=== PATIENT | female | born 1980 | race Caucasian/White ===

== ENCOUNTER 2017-08-23 18:15 | Emergency (ER) | payer OTHER ==
[2017-08-23 18:23] VITALS: BP 122/76
--- NOTE | 2017-08-23 19:36 | ER Document Report ---
ED Medical Screen (RME) - General Chief Complaint: Vaginal Bleeding Stated Complaint: VAGINAL BLEEDING Time Seen by Provider: 08/23/17 19:32 Notes: RAPID MEDICAL EVALUATION DISCLOSURE I have seen this patient as part of a Rapid Medical Evaluation and, if applicable, placed any initially appropriate orders. The patient will be seen and fully evaluated, including a full history and physical exam, by a provider ( in Main ED or Fast Track) when a room becomes available. 36-year-old female here with complaints of vaginal bleeding and left lower quadrant/pelvic pain that has been ongoing for the past few days. The bleeding initially started out as spotting however has progressively worsened and become heavier. She is now expelling clots but no tissue. She has not taken anything for the symptoms. She has taken several at home tests which were all negative. Some nausea but no vomiting diarrhea fevers chills dysuria hematuria frequency hesitancy. EXAM Clear to auscultation bilaterally Regular rate and rhythm Minimal to mild suprapubic and left lower quadrant tenderness No peritoneal signs TRAVEL OUTSIDE OF THE [place] IN LAST 30 DAYS: No - Related Data Allergies/Adverse Reactions: No Known Allergies Allergy (Unverified 08/23/17 18:20) Past Medical History - Social History Chew tobacco use (# tins/day): No Frequency of alcohol use: None Renal/ Medical History: Denies: Hx Peritoneal Dialysis Physical Exam - Vital signs Vitals: Temp Pulse Resp BP Pulse Ox 98.0 F 60 16 122/76 98 08/23/17 18:21 08/23/17 18:21 08/23/17 18:21 08/23/17 18:21 08/23/17 18:21 Course - Vital Signs Vital signs: Temp Pulse Resp BP Pulse Ox 98.0 F 60 16 122/76 98 08/23/17 18:21 08/23/17 18:21 08/23/17 18:21 08/23/17 18:21 08/23/17 18:21
--- NOTE | 2017-08-23 19:57 | ER Document Report ---
ED General - General Chief Complaint: Vaginal Bleeding Stated Complaint: VAGINAL BLEEDING Time Seen by Provider: 08/23/17 19:32 TRAVEL OUTSIDE OF THE [place] IN LAST 30 DAYS: No - HPI Notes: Patient is a 36-year-old female who presents to the ED complaining of vaginal bleeding with cramping and left lower pelvic intermittent pains 3 days. Patient states that her menstrual cycle was supposed to start on the first of the month and she is always regular. Patient is concerned that she may be having a miscarriage despite multiple negative tests at home. Patient states that she had an elective years ago, but has not been since then. She denies any drug allergies or other significant past medical history. She is eating and drinking without difficulties. She is urinating normally and having normal bowel movements. Bleeding started out light initially and has been heavier over the last 24 hours. She has used 5 tampons today. Denies any IV drug use. Denies any headache, fever, neck pain, URI, sore throat, chest pain, palpitations, syncope, cough, shortness of breath , wheeze, dyspnea, nausea/vomiting/diarrhea, urinary retention, dysuria, hematuria, back pain, loss of control of bowel or bladder, numbness/tingling, saddle anesthesia, muscle paralysis/weakness, or rash. No surgical history to abdomen aside from elective . - Related Data Allergies/Adverse Reactions: No Known Allergies Allergy (Unverified 08/23/17 18:20) Past Medical History - Social History Smoking Status: Never Smoker Chew tobacco use (# tins/day): No Frequency of alcohol use: None Family History: Reviewed & Not Pertinent Patient has suicidal ideation: No Patient has homicidal ideation: No Renal/ Medical History: Denies: Hx Peritoneal Dialysis Review of Systems - Review of Systems -: Yes All other systems reviewed and negative Physical Exam - Vital signs Vitals: Temp Pulse Resp BP Pulse Ox 98.0 F 60 16 122/76 98 08/23/17 18:21 08/23/17 18:21 08/23/17 18:21 08/23/17 18:21 08/23/17 18:21 - Notes Notes: PHYSICAL EXAMINATION: GENERAL: Well-appearing, well-nourished and in no acute distress. LUNGS: Breath sounds clear to auscultation bilaterally and equal. No wheezes rales or rhonchi. HEART: Regular rate and rhythm without murmurs, rubs, gallops. ABDOMEN: Soft, nondistended abdomen. No guarding, no rebound. No masses appreciated. Normal bowel sounds present. No CVA tenderness bilaterally. + mild tenderness left lower pelvic area. No tenderness at McBurney. noel neg. Extremities: No cyanosis, clubbing, or edema b/l. Peripheral pulses 2+. Capillary refill less than 3 seconds. NEUROLOGICAL: Normal speech, normal gait. Normal sensory, motor exams PSYCH: Normal mood, normal affect. SKIN: Warm, Dry, normal turgor, no rashes or lesions noted. Course - Re-evaluation Re-evalutation: 08/23/17 21:40 re-eval of patient's abd: pt currently asymptomatic. Abd soft and nontender. 08/23/17 21:44 Patient is an afebrile, well-hydrated, 28-year-old female who presents to the ED with pelvic pain unspecified and vaginal bleeding which may be associated with her menstrual cycle. Vitals are acceptable. PE is otherwise unremarkable. Patient is currently asymptomatic aside from light bleeding. She is tolerating p.o. without difficulties. She has no significant tachycardia , tachypnea, or hypoxia. Urinalysis and hCG were unremarkable for any acute pathology. Transvaginal ultrasound could not visualize the ovaries. Reviewed with patient that I cannot officially rule out an ovarian torsion and she needs to monitor symptoms closely and have strict follow-up. Advised patient that she should call and have a recheck with [employer] in the next 1-2 days. Recheck with your PCM in that time if unable to follow-up with [employer]. Return to the ED with any worsening/concerning symptoms otherwise as reviewed discharge. Patient is in agreement. - Vital Signs Vital signs: Temp Pulse Resp BP Pulse Ox 98.0 F 60 16 122/76 98 08/23/17 18:21 08/23/17 18:21 08/23/17 18:21 08/23/17 18:21 08/23/17 18:21 - Laboratory Laboratory results interpreted by me: 08/23/17 20:20 Urine Ketones TRACE H Urine Blood LARGE H Discharge - Discharge Clinical Impression: Pelvic pain Condition: Stable Disposition: HOME, SELF-CARE Instructions: Pelvic Pain ([facility]) Additional Instructions: Maintain fluid intake Proper hygenic technique Keep the skin clean Tylenol/ibuprofen as needed Monitor symptoms very closely for any acute changes F/u with your PCM or [facility] [facility] in 1-2 days for a recheck Return to the ED with any worsening symptoms and/or development of fever, headache, chest pain, palpitations, syncope, shortness of breath, trouble breathing, abdominal pain, n/v/d, blood in stool/urine, loss of control of bowel /bladder, urinary retention, or other worsening symptoms that are concerning to you. Referrals: [facility] [Provider Group] - Follow up tomorrow
[2017-08-23 20:35] LABS: APPEARANCE,URINE SLIGHTLY-CLOUDY; BILIRUBIN,URINE NEGATIVE (NEGATIVE); COLOR,URINE YELLOW; GLUCOSE, URINE NEGATIVE (NEGATIVE); KETONES,URINE TRACE mg/dL (NEGATIVE); LEUKOCYTE ESTERASE,URINE NEGATIVE (NEGATIVE); NITRITE,URINE NEGATIVE (NEGATIVE); PROTEIN,URINE NEGATIVE (NEGATIVE); UROBILINOGEN,URINE NEGATIVE mg/dL (<2.0)
--- NOTE | 2017-08-23 21:35 | RADIOLOGY REPORT (SQ) ---
EXAM DESCRIPTION: U/S NON OB PEL TV W/DOPPLER COMPLETED DATE/TIME: 08/23/2017 9:21 pm REASON FOR STUDY: left pelvic pain/cramping COMPARISON: None. TECHNIQUE: Dynamic and static grayscale images acquired of the pelvis via transvaginal approach and recorded on PACS. Additional selected color Doppler and spectral images recorded. LIMITATIONS: Overlying bowel gas. FINDINGS: UTERUS: Contour normal. No mass. ENDOMETRIAL STRIPE: No focal or generalized thickening. No masses. CERVIX: Multiple 5-6 mm nabothian cysts. RIGHT ADNEXUM: Ovary not visualized. LEFT ADNEXUM: Ovary not visualized. FREE FLUID: None noted. OTHER: No other significant finding. MEASUREMENTS: UTERUS: 7.4 x 4.1 x 4.5 cm ENDOMETRIAL STRIPE: 5 mm RIGHT OVARY: Not visualized. LEFT OVARY: Not visualized. IMPRESSION: Nonvisualized ovaries. No free fluid. TECHNICAL DOCUMENTATION: JOB ID: [id number] [place]-72 2010 [employer]- All Rights Reserved Reading location - IP/workstation name: [employer]
== END 2017-08-23 21:58 | disposition home or self-care (01) ==
LOC: ER 18:15
DX: R10.2 Pelvic and perineal pain (principal); N93.9 Abnormal uterine and vaginal bleeding, unspecified
CPT/HCPCS: 76830; 81001; 81025; 93976; 99284

== ENCOUNTER 2017-11-19 09:22 | Emergency (ER) | payer OTHER ==
[2017-11-19 11:03] LABS: APPEARANCE,URINE CLOUDY; BILIRUBIN,URINE NEGATIVE (NEGATIVE); GLUCOSE, URINE NEGATIVE (NEGATIVE); KETONES,URINE TRACE mg/dL (NEGATIVE); LEUKOCYTE ESTERASE,URINE NEGATIVE (NEGATIVE); NITRITE,URINE NEGATIVE (NEGATIVE); PROTEIN,URINE 30 mg/dL (NEGATIVE); URINE SPECIFIC GRAVITY 1.021; UROBILINOGEN,URINE NEGATIVE mg/dL (<2.0)
[2017-11-19 11:06] LABS: COLOR,URINE YELLOW
[2017-11-19 11:40] VITALS: BP 105/69
--- NOTE | 2017-11-19 14:10 | ER Document Report ---
ED General - General Chief Complaint: Vaginal Bleeding Stated Complaint: VAGINA BLEEDING Time Seen by Provider: 11/19/17 10:30 TRAVEL OUTSIDE OF THE [place] IN LAST 30 DAYS: No - HPI Patient complains to provider of: Vaginal bleeding Onset: Just prior to arrival Onset/Duration: Sudden Quality of pain: No pain Severity: None Associated symptoms: Other - Patient had a sudden onset of blood per vagina, she notes she is 13 weeks , denies any pain at this time has seen her OB doctor as recently as this week who did an ultrasound 4 days prior and had given her a clean bill of health as well as a normal IUP. Nothing is seem to make the bleeding any better it stopped on its own, this is the first time this is happened. She does not have any bleeding problems has never had any health problems that she knows of. - Related Data Allergies/Adverse Reactions: No Known Allergies Allergy (Verified 11/19/17 09:24) Past Medical History - General Information source: Patient Last Menstrual Period: 08/19/17 - Social History Smoking Status: Never Smoker Chew tobacco use (# tins/day): No Frequency of alcohol use: None Drug Abuse: None Family History: Reviewed & Not Pertinent Patient has suicidal ideation: No Patient has homicidal ideation: No Renal/ Medical History: Denies: Hx Peritoneal Dialysis Review of Systems - Review of Systems Genitourinary: Other - Blood from vagina Female Genitourinary: See HPI -: Yes All other systems reviewed and negative Physical Exam - Vital signs Vitals: Temp Pulse Resp BP Pulse Ox 99.2 F 90 16 117/76 98 11/19/17 09:27 11/19/17 09:27 11/19/17 09:27 11/19/17 09:27 11/19/17 09:27 - General General appearance: Appears well In distress: None - HEENT Head: Normocephalic Eyes: Normal - Respiratory Respiratory status: No respiratory distress Chest status: Nontender Breath sounds: Normal - Cardiovascular Rhythm: Regular Heart sounds: Normal auscultation Murmur: No - Abdominal Inspection: Normal Distension: No distension - Back Back: Normal - Extremities General upper extremity: Normal inspection General lower extremity: Normal inspection - Neurological Neuro grossly intact: Yes Cognition: Normal Orientation: AAOx4 - Psychological Associated symptoms: Normal affect Course - Re-evaluation Re-evalutation: 11/19/17 16:25 37-year-old female presents for evaluation of single episode of blood from vagina. She is 13 weeks has no other health perms at this time. Currently she has no complaints, is just concerned. Sedatives a reasonable amount of bright red blood no clots no other tissue noticed. Had no trauma to the abdomen preceding did not take any medications. Examination person does have a modestly gravid abdomen, bedside ultrasound demonstrates a well appearing fetus with a normal heart rate in the 150 range appropriate for gestational age. No obvious free fluid was identified in the pelvis. We will obtain urinalysis. Urines unremarkable, patient was previously to be treated for a yeast infection but would not be able to receive medications for the next week at least. Given that she does have yeast infection which is going undertreated currently we will give prescription for Monistat. 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 - Vital Signs Vital signs: Temp Pulse Resp BP Pulse Ox 98.0 F 69 16 105/69 98 11/19/17 11:38 11/19/17 11:38 11/19/17 11:38 11/19/17 11:38 11/19/17 11:38 - Laboratory Laboratory results interpreted by me: 11/19/17 10:25 Urine Protein 30 H Urine Ketones TRACE H Urine Blood LARGE H Discharge - Discharge Clinical Impression: Threatened Condition: Stable Disposition: HOME, SELF-CARE Additional Instructions: You were seen today in the emergency department for a threatened miscarriage, urine evaluation including physical exam and ultrasound. You should use the prescribed medication for a yeast infection. Return for any worsening cramping abdominal pain or passage of clots. Schedule appointment with your OB doctor in the coming days. Prescriptions: Miconazole/Cleanser 17 On Wipe [Miconazole 3 Combo Pack] 1 each VG DAILY #1 kit
== END 2017-11-19 11:40 | disposition home or self-care (01) ==
LOC: ER 09:22
DX: O20.0 Threatened abortion (principal); Z3A.13 13 weeks gestation of pregnancy
CPT/HCPCS: 81001; 99284

== ENCOUNTER → 2018-04-11 | Outpatient (CLI) | payer OTHER | LOC: LC 11:19 | PROVIDERS: ATTEND Obstetrics & Gynecology | PROC: 4A1HXCZ Monitoring of Products of Conception, Cardiac Rate, External Approach (ICD-10-PCS; principal; 2018-04-11) | DX: O09.523 Supervision of elderly multigravida, third trimester (principal); Z3A.33 33 weeks gestation of pregnancy | CPT/HCPCS: 59025 ==

== ENCOUNTER 2018-04-23 16:36 | Outpatient (CLI) | payer OTHER ==
[2018-04-23 18:15] LABS: APPEARANCE,URINE CLOUDY; BILIRUBIN,URINE NEGATIVE (NEGATIVE); COLOR,URINE YELLOW; GLUCOSE, URINE NEGATIVE (NEGATIVE); KETONES,URINE 80 mg/dL (NEGATIVE); LEUKOCYTE ESTERASE,URINE NEGATIVE (NEGATIVE); NITRITE,URINE NEGATIVE (NEGATIVE); PROTEIN,URINE 30 mg/dL (NEGATIVE); URINE SPECIFIC GRAVITY 1.017; UROBILINOGEN,URINE NEGATIVE mg/dL (<2.0)
[2018-04-23 18:26] LABS: URINE AMPHETAMINES SCREEN NEGATIVE; URINE BARBITURATES SCREEN NEGATIVE; URINE BENZODIAZEPINES SCREEN NEGATIVE; URINE COCAINE SCREEN NEGATIVE; URINE METHADONE SCREEN NEGATIVE; URINE PHENCYCLIDINE SCREEN NEGATIVE
[2018-04-23 18:36] LABS: URINE MARIJUANA (THC) SCREEN UNCONFIRMED POSITIVE
== END 2018-04-23 18:45 | disposition home or self-care (01) ==
LOC: LC 16:36
PROVIDERS: ATTEND Obstetrics & Gynecology
DX: O47.03 False labor before 37 completed weeks of gestation, third trimester (principal); O99.333 Smoking (tobacco) complicating pregnancy, third trimester; F17.210 Nicotine dependence, cigarettes, uncomplicated; O99.323 Drug use complicating pregnancy, third trimester; F12.90 Cannabis use, unspecified, uncomplicated; O09.523 Supervision of elderly multigravida, third trimester; O40.3XX0 Polyhydramnios, third trimester, not applicable or unspecified; Z3A.35 35 weeks gestation of pregnancy
CPT/HCPCS: 59025; 80307; 81001

== ENCOUNTER 2018-05-02 10:38 | Outpatient (CLI) | payer OTHER ==
--- NOTE | 2018-05-02 11:42 | Non Stress Test Report ---
Non Stress Test Datetime Report Generated by CPN: 05/02/2018 11:41 DEMOGRAPHIC EGA NST: 36.3 EGA NST: 35.1 EGA NST: 33.3 INDICATION Indication for Study: Polyhydramnios; Ordered by Provider Indication for Study: Polyhydramnios; Ordered by Provider; Other Indication for Study: Polyhydramnios; Other Indication for Study: Ordered by Provider; Other Indication for Study (NST) Other: AMA Indication for Study (NST) Other: lc Indication for Study (NST) Other: AMA, Office NST VITAL SIGNS Temperature - NST: 98.3 Temperature - NST: 99.1 Pulse - NST: 88 Pulse - NST: 109 RESP - NST: 17 RESP - NST: 20 NBPSYS NST: 100 NBPSYS NST: 103 NBPDIA NST: 68 NBPDIA NST: 67 MONITORING Monitor Explained: Monitor Explained; Test Explained; Patient Verbalized Understanding Monitor Explained: Monitor Explained; Test Explained; Patient Verbalized Understanding Monitor Explained: Monitor Explained; Test Explained; Patient Verbalized Understanding Monitor Explained: Monitor Explained; Test Explained; Patient Verbalized Understanding Time on Monitor: 05/02/2018 10:54 Time on Monitor: 04/23/2018 16:49 Time on Monitor: 04/11/2018 11:27 Time off Monitor: 05/02/2018 11:17 Time off Monitor: 04/23/2018 18:25 Time off Monitor: 04/11/2018 12:05 NST Duration: 23 NST Duration: 96 NST Duration: 38 NST INTERVENTIONS NST Interventions: PO Hydration; Reposition Patient NST Interventions: PO Hydration; Reposition Patient NST Interventions: PO Hydration; Reposition Patient NST Interventions: PO Hydration Physician Notified NST: Isabel Romo CNM Physician Notified NST: Dr Hunter BABY A: [id number] BABY A Movement : Present Movement : Present Contraction Frequency : intermittent Contraction Frequency : 1-6 irreg Contraction Frequency : denies FHR Baseline : 140 FHR Baseline : 125 Accelerations : 15X15 Accelerations : 15X15 Decelerations : None Decelerations : None Variability : Moderate 6-25bpm Variability : Moderate 6-25bpm NST Review: Meets Criteria for Reactive NST NST Review: Meets Criteria for Reactive NST NST Review and Verified By : Genevieve Phillips RNC NST Review and Verified By : Suyapa Coker RN NST Results: Reactive NST Results: Reactive NST REPORT Report Trigger: Send Report
== END 2018-05-02 11:22 | disposition home or self-care (01) ==
LOC: LC 10:38
PROVIDERS: ATTEND Obstetrics & Gynecology
PROC: 4A1HXCZ Monitoring of Products of Conception, Cardiac Rate, External Approach (ICD-10-PCS; principal; 2018-05-02)
DX: O40.3XX0 Polyhydramnios, third trimester, not applicable or unspecified (principal); O09.523 Supervision of elderly multigravida, third trimester; O99.333 Smoking (tobacco) complicating pregnancy, third trimester; F17.210 Nicotine dependence, cigarettes, uncomplicated; Z3A.36 36 weeks gestation of pregnancy
CPT/HCPCS: 59025; 84112

== ENCOUNTER → 2018-05-09 | Outpatient (CLI) | payer OTHER | LOC: LC 10:49 | PROVIDERS: ATTEND Obstetrics & Gynecology | PROC: 4A1HXCZ Monitoring of Products of Conception, Cardiac Rate, External Approach (ICD-10-PCS; principal; 2018-05-09) | DX: O09.523 Supervision of elderly multigravida, third trimester (principal); O99.333 Smoking (tobacco) complicating pregnancy, third trimester; F17.210 Nicotine dependence, cigarettes, uncomplicated; Z3A.37 37 weeks gestation of pregnancy | CPT/HCPCS: 59025 ==

== ENCOUNTER 2018-05-15 16:29 | Outpatient (CLI) | payer OTHER ==
[2018-05-15 17:06] LABS: APPEARANCE,URINE CLOUDY; BILIRUBIN,URINE NEGATIVE (NEGATIVE); COLOR,URINE AMBER; GLUCOSE, URINE NEGATIVE (NEGATIVE); KETONES,URINE 80 mg/dL (NEGATIVE); LEUKOCYTE ESTERASE,URINE TRACE (NEGATIVE); NITRITE,URINE NEGATIVE (NEGATIVE); PROTEIN,URINE 30 mg/dL (NEGATIVE); URINE SPECIFIC GRAVITY 1.018; UROBILINOGEN,URINE NEGATIVE mg/dL (<2.0)
[2018-05-15 17:24] LABS: URINE AMPHETAMINES SCREEN NEGATIVE; URINE BARBITURATES SCREEN NEGATIVE; URINE BENZODIAZEPINES SCREEN NEGATIVE; URINE COCAINE SCREEN NEGATIVE; URINE METHADONE SCREEN NEGATIVE; URINE PHENCYCLIDINE SCREEN NEGATIVE
[2018-05-15 17:28] LABS: URINE MARIJUANA (THC) SCREEN UNCONFIRMED POSITIVE
[2018-05-15] MEDS ORDERED: HYDROXYZINE PAMOATE 50 MG CAPSULE ONE (19:43)
--- NOTE | 2018-05-15 20:05 | Non Stress Test Report ---
Non Stress Test Datetime Report Generated by CPN: 05/15/2018 20:05 DEMOGRAPHIC EGA NST: 38.2 EGA NST: 37.3 INDICATION Indication for Study: Ordered by Provider Indication for Study: Ordered by Provider; Other Indication for Study (NST) Other: AMA VITAL SIGNS Temperature - NST: 98.4 MONITORING Monitor Explained: Monitor Explained; Test Explained; Patient Verbalized Understanding Monitor Explained: Monitor Explained; Test Explained; Patient Verbalized Understanding Time on Monitor: 05/15/2018 16:45 Time on Monitor: 05/09/2018 10:55 Time off Monitor: 05/15/2018 17:23 Time off Monitor: 05/09/2018 11:18 NST Duration: 38 NST Duration: 23 NST INTERVENTIONS NST Interventions: PO Hydration NST Interventions: PO Hydration; Reposition Patient Physician Notified NST: Dr. Ramos Physician Notified NST: K Beach CNM BABY A: [id number] BABY A Movement : Present Contraction Frequency : 3-7 Contraction Frequency : denies FHR Baseline : 135 FHR Baseline : 140 Accelerations : 15X15 Accelerations : 15X15 Decelerations : None Decelerations : None Variability : Moderate 6-25bpm Variability : Moderate 6-25bpm NST Review: Meets Criteria for Reactive NST NST Review: Meets Criteria for Reactive NST NST Review and Verified By : jazlyn aguiar NST Review and Verified By : JAZLYN Yeung Results: Reactive NST Results: Reactive NST REPORT Report Trigger: Send Report
[2018-05-15] MEDS ORDERED: HYDROXYZINE PAMOATE 50 MG CAPSULE PO SCH (22:00)
== END 2018-05-15 19:49 | disposition home or self-care (01) ==
LOC: LC 16:29
PROVIDERS: ATTEND Obstetrics & Gynecology
PROC: 4A1HXCZ Monitoring of Products of Conception, Cardiac Rate, External Approach (ICD-10-PCS; principal; 2018-05-15)
DX: O47.1 False labor at or after 37 completed weeks of gestation (principal); Z3A.38 38 weeks gestation of pregnancy
CPT/HCPCS: 59025; 81005; 80307; G0480 ×2; 80349

== ENCOUNTER 2018-05-16 07:55 | Outpatient (CLI) | payer OTHER ==
[2018-05-16 08:28] LABS: APPEARANCE,URINE CLOUDY; BILIRUBIN,URINE NEGATIVE (NEGATIVE); GLUCOSE, URINE NEGATIVE (NEGATIVE); KETONES,URINE 20 mg/dL (NEGATIVE); LEUKOCYTE ESTERASE,URINE NEGATIVE (NEGATIVE); NITRITE,URINE NEGATIVE (NEGATIVE); PROTEIN,URINE 100 mg/dL (NEGATIVE)
[2018-05-16 08:31] LABS: COLOR,URINE DARK YELLOW
[2018-05-16 08:52] LABS: URINE AMPHETAMINES SCREEN NEGATIVE; URINE BARBITURATES SCREEN NEGATIVE; URINE BENZODIAZEPINES SCREEN NEGATIVE; URINE COCAINE SCREEN NEGATIVE; URINE METHADONE SCREEN NEGATIVE; URINE PHENCYCLIDINE SCREEN NEGATIVE
[2018-05-16 08:57] LABS: URINE MARIJUANA (THC) SCREEN UNCONFIRMED POSITIVE
[2018-05-16] MEDS ORDERED: RINGERS SOLUTION,LACTATED 1,000 ML IV PRN (10:59)
[2018-05-16] MEDS ORDERED: MORPHINE SULFATE 10 MG/ML INJ ONE (11:16)
[2018-05-16] MEDS ORDERED: MORPHINE SULFATE 10 MG/ML INJ IV ONE (11:18)
--- NOTE | 2018-05-16 14:11 | Non Stress Test Report ---
Non Stress Test Datetime Report Generated by CPN: 05/16/2018 14:11 DEMOGRAPHIC EGA NST: 38.3 INDICATION Indication for Study: Other Indication for Study (NST) Other: LABOR CHECK MONITORING Monitor Explained: Monitor Explained; Test Explained; Patient Verbalized Understanding Time on Monitor: 05/16/2018 08:11 Time off Monitor: 05/16/2018 13:23 NST Duration: 312 NST INTERVENTIONS NST Interventions: PO Hydration; IV Fluids; Reposition Patient Physician Notified NST: C Romo CNM BABY A: [id number] BABY A Movement : Present Contraction Frequency : irregular FHR Baseline : 145 Accelerations : 15X15 Decelerations : None Variability : Moderate 6-25bpm NST Review: Meets Criteria for Reactive NST NST Review and Verified By : Genevieve Camp RNC NST REPORT Report Trigger: Send Report
== END 2018-05-16 14:43 | disposition home or self-care (01) ==
LOC: LC 07:55
PROVIDERS: ATTEND Obstetrics & Gynecology
PROC: 4A1HXCZ Monitoring of Products of Conception, Cardiac Rate, External Approach (ICD-10-PCS; principal; 2018-05-16)
DX: O47.1 False labor at or after 37 completed weeks of gestation (principal); O99.333 Smoking (tobacco) complicating pregnancy, third trimester; F17.210 Nicotine dependence, cigarettes, uncomplicated; O09.523 Supervision of elderly multigravida, third trimester; Z3A.38 38 weeks gestation of pregnancy
CPT/HCPCS: 59025; 81005; 80307; J2270

== ENCOUNTER 2018-05-17 04:08 | Inpatient (IN) | payer OTHER ==
[2018-05-17] MEDS ORDERED: RINGERS SOLUTION,LACTATED 1,000 ML IV PRN (04:45)
[2018-05-17] MEDS ORDERED: RINGERS SOLUTION,LACTATED 1,000 ML IV ONE (04:45)
[2018-05-17 04:47] LABS: APPEARANCE,URINE CLOUDY; BILIRUBIN,URINE NEGATIVE (NEGATIVE); COLOR,URINE YELLOW; GLUCOSE, URINE NEGATIVE (NEGATIVE); KETONES,URINE 80 mg/dL (NEGATIVE); LEUKOCYTE ESTERASE,URINE LARGE (NEGATIVE); NITRITE,URINE NEGATIVE (NEGATIVE); PROTEIN,URINE 30 mg/dL (NEGATIVE); URINE SPECIFIC GRAVITY 1.016; UROBILINOGEN,URINE NEGATIVE mg/dL (<2.0)
[2018-05-17] MEDS ORDERED: MISOPROSTOL 0.2 MG TABLET ONE (04:50)
[2018-05-17] MEDS ORDERED: OXYTOCIN/NORMAL SALINE 20 UNIT/1,000 ML RTUINJ ONE (04:50)
[2018-05-17] MEDS ORDERED: LIDOCAINE 1% INJ-PF (10 MG/ML) 30 ML SDV ONE (04:50)
[2018-05-17] MEDS ORDERED: EPHEDRINE SULFATE INJ 50 MG/1 ML AMPULE ONE (05:02)
[2018-05-17 05:03] LABS: ABSOLUTE BASOPHILS # (AUTO) 0.1 10^3/uL (0.0-0.2); ABSOLUTE LYMPHOCYTES (AUTO) 1.7 10^3/uL (0.5-4.7); ABSOLUTE NEUT (AUTO) 10.5 10^3/uL (1.7-8.2); BASOPHILS % (AUTO) 0.4 % (0-2); EOSINOPHILS % (AUTO) 0.3 % (0-6); HEMATOCRIT 40.3 % (36.0-47.0); LYMPHOCYTES % (AUTO) 12.6 % (13-45); MEAN CORPUSCULAR HGB CONC 34.7 g/dL (32.0-36.0); MEAN CORPUSCULAR VOLUME 98 fl (80-97); MONOCYTES % (AUTO) 7.5 % (3-13); PLATELET COUNT 285 10^3/uL (150-450); RED BLOOD COUNT 4.11 10^6/uL (3.72-5.28); RED CELL DISTRIBUTION WIDTH 14.2 % (11.5-14.0); SEGMENTED NEUTROPHILS % (AUTO) 79.2 % (42-78); TOTAL CELLS COUNTED % (AUTO) 100 %; WHITE BLOOD COUNT 13.2 10^3/uL (4.0-10.5)
[2018-05-17] MEDS ORDERED: FENTANYL/BUPIVACAINE/NS/PF 0 MCG/0 ML RTUINJ EPI ONE (05:03)
[2018-05-17] MEDS ORDERED: BUPIVACAINE HCL 0.25 % INJ/PF (2.5 MG/1 ML) 30 ML VIAL ONE (05:03)
[2018-05-17 05:09] LABS: URINE AMPHETAMINES SCREEN NEGATIVE; URINE BARBITURATES SCREEN NEGATIVE; URINE BENZODIAZEPINES SCREEN NEGATIVE; URINE COCAINE SCREEN NEGATIVE; URINE METHADONE SCREEN NEGATIVE; URINE PHENCYCLIDINE SCREEN NEGATIVE
[2018-05-17 05:21] LABS: URINE MARIJUANA (THC) SCREEN UNCONFIRMED POSITIVE
--- NOTE | 2018-05-17 07:05 | Admission Physical ---
Datetime Report Generated by CPN: 05/17/2018 07:04 CURRENT ADMISSION Chief Complaint: Suspected Ruptured Membranes Indication for Induction: Not Applicable Admit Impression : Term, Intrauterine ; Active Labor Admit Plan: Admit to Unit; Initiate Labor Protocol ALLERGIES Medication Allergies: No Medication Allergies: No Known Allergies (05/17/2018) Latex: No Latex Allergies OBSTETRICAL HISTORY EDC: 05/27/2018 00:00 : 3 Para: 0 Term: 0 : 0 SAB: 0 IAB: 0 Ectopic: 0 Livin Cesareans: 0 VBACs: 0 Multiple Births: 0 Gestational Diabetes: No Rh Sensitization: No Incompetent Cervix: No YESSICA: No Infertility: No ART Treatment: No Uterine Anomaly: No IUGR: No Hx Previous C/S: No Macrosomia: No Hx Loss/Stillborn: No PIH: No Hx : No Placenta Previa/Abruption: No Depression/PP Depression: Unknown PTL/PROM: No Post Hemorrhage: No Current Procedures: Ultrasound Obstetrical History Comments: G1-SAB 2008 G2- SAB G3- current , h/o PTSD with depression currently in therapy through [place] and on Zoloft 100mg daily, polyhydramnious and AMA SEE RECORDS Alcohol: No Marijuana : Yes Marijuana Frequency: Occasional Last Used: 04/09/2018 00:00 Cocaine: No Other Illicit Drugs: No Cigarettes: Current Everyday Smoker. 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 Surgery: No Heart Disease: No Hosp/Surgery: No Autoimmune Disorder: No Anesthetic Complications: No Kidney Disease: No Abnormal Pap Smear: No Neuro/Epilepsy: No Psychiatric Disorders: Yes Other Medical Diseases: No Hepatitis/Liver Disease: No Significant Family History: No Varicosities/Phlebitis: No Trauma/Violence : No Thyroid Dysfunction: Yes Medical History Comments: PTSD, INFECTIOUS HISTORY Gonorrhea: No Genital Herpes: No Chlamydia: No Tuberculosis: No Syphilis: No Hepatitis: No HIV/AIDS Exposure: No Rash or Viral Illness: No HPV: Yes Infectious History Comments: HPV PHYSICAL EXAM General: Normal HEENT: Normal Neurologic: Normal Thyroid: Normal Heart: Normal Lungs: Normal Breast: Deferred Back: Normal Abdomen: Normal Genitourinary Exam: Normal Extremities: Normal DTRs: Normal Pelvic Type: Adequate Vital Signs: Reviewed VAGINAL EXAM Dilatation: 5 Effacement: 90 Station: -1 MEMBRANES Pooling: Negative Membranes: Intact FETUS A EGA: 38.4 Monitoring: External US FHR- Baseline: 120 Variability: Moderate 6-25bpm Decelerations: None Presentation: Vertex Admit Comment: anticipate delivery PLANS FOR LABOR AND DELIVERY Labor and Delivery: None; Cord Blood Donation Pain Management: Epidural Feeding Preference: Breast Benefit of Breast Feed Discussed: Yes Circumcision: N/A INFORMED CONSENT Signature: with User ID: [email or web address]
--- NOTE | 2018-05-17 08:37 | L&D Progress Notes ---
PROGRESS NOTES Datetime Report Generated by CPN: 05/17/2018 08:37 PROGRESS NOTE Impression: Normal Progression of Labor Procedures: Artificial ROM; Sterile Vag Exam Plan: Continue Present Management; Induction Informed Consent Obtained: Vaginal Delivery Vital Signs : Reviewed; Within Normal Limits Comment: Rim, AROM light meconium, -2, light mec, irregular uc's, Cat 1, turned, peanut ball, will let patient labor down, anticipate VAGINAL EXAM Dilatation: 5 Effacement: 90 Station: -1 LAST VAGINAL EXAM-NURSING Dilitation: 5.5 Dilitation: 4.5 Dilitation: 3.0 Dilitation: 3.0 Dilitation: 3.0 Dilitation: 0.0 Dilitation: 0.0 Effacement: 90 Effacement: 75 Effacement: 90 Effacement: 50 Effacement: 50 Effacement: 50 Station: -1 Station: -1 Station: -2 Station: -3 Station: -3 Station: -3 MEMBRANES Pooling: Negative Membranes: Intact FETUS A Monitoring: External US Variability: Moderate 6-25bpm Decelerations: None : 38.0 Presentation: Vertex SIGNATURE SIGNATURE: [id number];[id number];[id number] SIGNATURE: [id number];[id number] SIGNATURE: [id number] SIGNATURE: [id number] SIGNATURE: 14,[id number] Assignment: Kamilah Ramos MD Signature: with User ID: [email or web address] : with User ID: Beverley
[2018-05-17] MEDS ORDERED: OXYTOCIN/NORMAL SALINE 20 UNIT/1,000 ML RTUINJ IV PRN ×2 (09:45→16:58)
[2018-05-17] MEDS ORDERED: ONDANSETRON 4 MG TAB.RAPDIS PO PRN (10:14)
[2018-05-17] MEDS ORDERED: ACETAMINOPHEN 1,000 MG/100 ML RTUPB IV PRN (10:25)
[2018-05-17] MEDS ORDERED: ACETAMINOPHEN 1,000 MG/100 ML RTUPB IV ONE (10:31)
[2018-05-17] MEDS ORDERED: ONDANSETRON 4 MG TAB.RAPDIS ONE (11:53)
[2018-05-17] MEDS ORDERED: FENTANYL/BUPIVACAINE/NS/PF 300 MCG/150 ML RTUINJ EPI ONE (14:32)
[2018-05-17] MEDS ORDERED: AMPICILLIN SOD INJ 2 GM VIAL ONE (15:24)
[2018-05-17] MEDS ORDERED: AMPICILLIN SODIUM 2 GM in NORMAL SALINE 100 ML IV ONE (15:38)
[2018-05-17] MEDS ORDERED: IBUPROFEN 800 MG TABLET ONE (16:46)
[2018-05-17] MEDS ORDERED: DIPHENHYDRAMINE HCL 25 MG CAPSULE PO PRN (16:58)
[2018-05-17] MEDS ORDERED: PROMETHAZINE HCL 25 MG SUPP.RECT PR PRN (16:58)
[2018-05-17] MEDS ORDERED: NA PHOS,M-B/NA PHOS,DI-BA (ADULT) 133 ML ENEMA PR PRN (16:58)
[2018-05-17] MEDS ORDERED: ZOLPIDEM TARTRATE 5 MG TABLET PO PRN (16:58)
[2018-05-17] MEDS ORDERED: ACETAMINOPHEN WITH CODEINE #3 TABLET PO PRN ×2 (16:58)
[2018-05-17] MEDS ORDERED: DIBUCAINE 1% OINTMENT 28 GM TP PRN (16:58)
[2018-05-17] MEDS ORDERED: MAGNESIUM HYDROXIDE SUSP 30 ML UDCUP PO PRN (16:58)
[2018-05-17] MEDS ORDERED: PSEUDOEPHEDRINE HCL 30 MG TABLET PO PRN (16:58)
[2018-05-17] MEDS ORDERED: PROMETHAZINE HCL 25 MG TABLET PO PRN (16:58)
[2018-05-17] MEDS ORDERED: DIPH/PERTUSS(ACELL)/TETANUS VAC/PF 0.5 ML SYR (>=10YO) IM PRN (16:58)
[2018-05-17] MEDS ORDERED: ACETAMINOPHEN 650 MG SUPP.RECT PR PRN (16:58)
[2018-05-17] MEDS ORDERED: PROMETHAZINE HCL INJ 25 MG/1 ML VIAL IV PRN (16:58)
[2018-05-17] MEDS ORDERED: MEASLES,MUMPS&RUBELLA VACC/PF 0.5 ML VIAL SUBCUT PRN (16:58)
[2018-05-17] MEDS ORDERED: GLYCERIN/WITCH HAZEL LEAF 1 EACH MED..PAD TP PRN (16:58)
[2018-05-17] MEDS ORDERED: BENZOCAINE/MENTHOL AEROSOL SPRAY 56 ML TOP PRN (16:58)
--- NOTE | 2018-05-17 18:18 | Warning Signs in Babies ---
VOD Warning Signs Datetime Report Generated by [facility]: 05/17/2018 18:18 VOD#608 -Warning Signs in Babies: Viewed with Parent(s)/Family (04/11/2018 11:25:MELIDA Ambriz)
--- NOTE | 2018-05-17 18:22 | Delivery Summary ---
Del Sum A-C Datetime Report Generated by CPN: 05/17/2018 18:22 DELIVERY PERSONNEL DELIVERY PERSONNEL: [id number] Delivery Doctor:: Kamilah Ramos MD Labor and Delivery Nurse:: Genevieve Phillips RNC Labor and Delivery Nurse:: Juana Ramos RN Nursery Nurse:: Soraida Rosen RN Spool Winder/[employer] REPAIRER: Radha Solerillo, BASKET PERSON MATERNAL INFORMATION Delivery Anesthesia: Epidural Medications After Delivery: Pitocin Bolus-Please Comment Meds After Delivery Comment: Pitocin 20 units in 1 L NS bolusing per order Estimated Blood Loss (ml): 300 Maternal Complications: None LABOR SUMMARY EDC: 05/27/2018 00:00 No. Babies in Womb: 1 Attempted: No Labor Anesthesia: Epidural LABOR INFORMATION Reason for Induction: Not Applicable Onset of Labor: 05/17/2018 03:45 Complete Dilatation: 05/17/2018 14:40 Oxytocin: Augmentation Group B Beta Strep: neg Antibiotics # of Doses: 0 Antibiotics Time of Last Dose: n/a Name of Antibiotic Given: n/a Steroids Given: None Reason Steroids Not Administered: Not Applicable MEMBRANES Membranes Rupture Method: Artificial Rupture of Membranes: 05/17/2018 03:45 Length of Rupture (hr): 12.73 Amniotic Fluid Color: Moderate Meconium Amniotic Fluid Amount: Moderate Amniotic Fluid Odor: Normal STAGES OF LABOR Stage 1 hr: 10 Stage 1 min: 55 Stage 2 hr: 1 Stage 2 min: 49 Stage 3 hr: 0 Stage 3 min: 4 Total Time in Labor hr: 12 Total Time in Labor min: 48 VAGINAL DELIVERY Episiotomy: None Laceration #1: Vaginal Laceration Extension #1: Second Degree Laceration Repair Note: 2-0 chromic with figure of 8 stitch Sponge Count Correct: N/A Sharps Count Correct: N/A CSECTION DELIVERY Primary Indication: N/A Secondary Indication: N/A CSection Incidence: N/A Labor: N/A Elective: N/A CSection Incision: N/A BABY A INFORMATION Infant Delivery Date/Time: 05/17/2018 16:29 Method of Delivery: Vaginal Born in Route : No : N/A Forceps: N/A Vacuum Extraction: N/A Shoulder Dystocia : No ASSISTED DELIVERY BABY A Position Vacuum/Forcep Apply: Left Occipital Anterior Vacuum Number of Pulls: 2 Vacuum Number of PopOffs: 2 Reduce Pressure btwn Ctx: Yes Vacuum Vice President Digital Strategist: [place] Total Time Vacuum Applied: 2 minutes PRESENTATION/POSITION BABY A Presentation: Cephalic Cephalic Presentation: Vertex Vertex Position: Left Occipital Anterior Breech Presentation: N/A PLACENTA INFORMATION BABY A Placenta Delivery Time : 05/17/2018 16:33 Placenta Method of Delivery: Spontaneous Placenta Status: Delivered SCORES BABY A Heart Rate 1 min: Slow, Below 100 bpm Resp Effort 1 min: Slow, Irregular Reflex Irritability 1 min: [place]im[place] Muscle Tone 1 min: Flaccid Color 1 min: Blue/Pale Resuscitation Effort 1 min: Tactile Stimulation; PPV/NCPAP SCORE 1 MIN: 3 Heart Rate 5 min: >100 bpm Resp Effort 5 min: Slow, Irregular Reflex Irritability 5 min: Cough or Sneeze or Pulls Away Muscle Tone 5 min: Some Flexion of Extremities Color 5 min: Blue/Pale Resuscitation Effort 5 min: Tactile Stimulation; PPV/NCPAP SCORE 5 MIN: 6 Heart Rate 10 min: >100 bpm Resp Effort 10 min: Slow, Irregular Reflex Irritability 10 min: Cough or Sneeze or Pulls Away Muscle Tone 10 min: Some Flexion of Extremities Color 10 min: Body [place], Extremities Blue Resuscitation Effort 10 min: Tactile Stimulation; PPV/NCPAP SCORE 10 MIN: 7 INFANT INFORMATION BABY A Gestational Age at Delivery: 38.4 Gestational Status: Early Term- 37- 38.6 Weeks Outcome : Liveborn Infant Condition : Fair Sex: Female IDENTIFICATION BABY A Verification Date/Time: 05/17/2018 17:10 ID Band Number: [id number] Mother's Name Verified: Yes Infant RN Verifying : Alessio Ramos RN, Kimberlee Phillips RN WEIGHT/LENGTH BABY A Infant Birthweight (gm): 3209 Weight (lb): 7 Weight (oz): 1 Infant Length (in): 19.25 Infant Length (cm): 48.90 CORD INFORMATION BABY A No. Cord Vessels: 3 Nuchal Cord : Around Neck x2, Loose Cord Blood Taken: Yes-For Storage (Mom's Blood type +) Infant Suction: Mouth; Nose ASSESSMENT BABY A Infant Complications: Extended Tachycardia; Meconium Physical Findings at Delivery: Caput Succedaneum Skin to Skin: No Skin to Skin Time (min): 0 Infant Care By: Milton Rosen RN Transferred To: NICU BABY B INFORMATION : N/A SIGNATURES Signature: with User ID: [email or web address]
[2018-05-17] MEDS: DOCUSATE SODIUM 100 MG CAPSULE PO SCH (19:54)
[2018-05-17] MEDS: FERROUS SULFATE 325 MG TABLET PO SCH (19:55)
[2018-05-17] MEDS ORDERED: ACETAMINOPHEN 325 MG TABLET PO ONE (21:00)
[2018-05-17] MEDS: IBUPROFEN 800 MG TABLET PO SCH (22:24)
[2018-05-17] MEDS: FAMOTIDINE 20 MG TABLET PO SCH (22:24)
[2018-05-17] MEDS: AMPICILLIN SODIUM/SULBACTAM NA 3 GM in NORMAL SALINE 100 ML IV SCH (22:25)
[2018-05-18] MEDS: AMPICILLIN SODIUM/SULBACTAM NA 3 GM in NORMAL SALINE 100 ML IV SCH ×2 (06:43→14:00)
[2018-05-18] MEDS: IBUPROFEN 800 MG TABLET PO SCH ×3 (06:44→22:00)
[2018-05-18 07:37] LABS: HEMATOCRIT 32.3 % (36.0-47.0); MEAN CORPUSCULAR HEMOGLOBIN 33.8 pg (27.0-33.4); MEAN CORPUSCULAR VOLUME 99 fl (80-97); PLATELET COUNT 215 10^3/uL (150-450); RED BLOOD COUNT 3.25 10^6/uL (3.72-5.28); RED CELL DISTRIBUTION WIDTH 14.6 % (11.5-14.0); WHITE BLOOD COUNT 16.1 10^3/uL (4.0-10.5)
--- NOTE | 2018-05-18 09:00 | PDOC PROGRESS REPORT ---
Subjective-OB Progress Note for:: 05/18/18 Subjective: Pt doing well, no concerns. Reports light bleeding, reg diet and voiding without difficulty. Physical Exam (OB) Vital Signs: Temp Pulse Resp BP Pulse Ox 97.8 F 88 16 113/70 100 05/18/18 08:23 05/18/18 08:23 05/18/18 08:23 05/18/18 08:23 05/18/18 08:23 Intake & Output 05/17/18 05/18/18 05/19/18 06:59 06:59 06:59 Intake Total 2500 Balance 2500 Weight 74.042 kg - Lochia Lochia Amount: Small 10-25 ml Lochia Color: Rubra/Red - Abdomen Description: Soft Hernia Present: No Fundal Description: Firm, Midline Fundal Height: u/u - u/2 Objective-Diagnostic Laboratory: 05/18/18 07:03 05/18/18 07:03 WBC 16.1 H RBC 3.25 L Hgb 11.0 L D Hct 32.3 L MCV 99 H MCH 33.8 H MCHC 34.0 RDW 14.6 H Plt Count 215 Assessment and Plan(PN) - Assessment and Plan (1) Vaginal delivery Is this a current diagnosis for this admission?: Yes - Time Spent with Patient Time with patient: Less than 15 minutes Medications reviewed and adjusted accordingly: Yes - Disposition Anticipated Discharge: Home Within: within 24 hours
[2018-05-18] MEDS: SERTRALINE HCL 50 MG TABLET PO SCH (10:05)
[2018-05-18] MEDS: FAMOTIDINE 20 MG TABLET PO SCH ×2 (10:09→22:00)
[2018-05-18] MEDS: FERROUS SULFATE 325 MG TABLET PO SCH ×2 (10:09→18:17)
[2018-05-18] MEDS: PRENATAL VITAMIN W DHA CAPSULE PO SCH (10:09)
[2018-05-18] MEDS: SENNOSIDES/DOCUSATE 8.6-50 MG 1 EACH TABLET PO SCH (10:09)
[2018-05-18] MEDS: DOCUSATE SODIUM 100 MG CAPSULE PO SCH ×2 (10:09→18:17)
[2018-05-18] MEDS: LEVOTHYROXINE SODIUM 0.15 MG TABLET PO SCH (10:29)
[2018-05-19] MEDS: LEVOTHYROXINE SODIUM 0.15 MG TABLET PO SCH (05:25)
[2018-05-19] MEDS: IBUPROFEN 800 MG TABLET PO SCH ×2 (06:02→16:53)
[2018-05-19] MEDS: PRENATAL VITAMIN W DHA CAPSULE PO SCH (10:31)
[2018-05-19] MEDS: SERTRALINE HCL 50 MG TABLET PO SCH (10:31)
[2018-05-19] MEDS: FERROUS SULFATE 325 MG TABLET PO SCH ×2 (10:31→18:14)
[2018-05-19] MEDS: DOCUSATE SODIUM 100 MG CAPSULE PO SCH ×2 (10:32→18:13)
[2018-05-19] MEDS: SENNOSIDES/DOCUSATE 8.6-50 MG 1 EACH TABLET PO SCH (10:32)
--- NOTE | 2018-05-19 10:58 | PDOC PROGRESS REPORT ---
Subjective-OB Progress Note for:: 05/19/18 Subjective: Ready for discharge. Physical Exam (OB) Vital Signs: Temp Pulse Resp BP Pulse Ox 97.6 F 76 16 98/60 L 100 05/19/18 07:50 05/19/18 07:50 05/19/18 07:50 05/19/18 07:50 05/19/18 07:50 Intake & Output 05/18/18 05/19/18 05/20/18 06:59 06:59 06:59 Intake Total 2500 1400 Balance 2500 1400 - PIH/Pre-Eclampsia DTR's: 2 + Clonus: Negative Headache: Absent Epigastric Pain: No Visual Changes: No - Lochia Lochia Amount: Scant < 10 ml Lochia Color: Rubra/Red - Abdomen Description: Soft Hernia Present: No Bowel Sounds: Normoactive Flatus Presence: Present Stool: Yes Fundal Description: Firm, Midline Fundal Height: u/u - u/2 Objective-Diagnostic Laboratory: 05/18/18 07:03 Assessment and Plan(PN) - Time Spent with Patient Medications reviewed and adjusted accordingly: Yes - Disposition Anticipated Discharge: Home
--- NOTE | 2018-05-19 11:04 | PDOC DISCHARGE SUMMARY ---
Final Diagnosis Discharge Date: 05/19/18 - Final Diagnosis (1) History of posttraumatic stress disorder (PTSD) Is this a current diagnosis for this admission?: Yes (2) Positive urine drug screen Is this a current diagnosis for this admission?: Yes (3) Vacuum extraction, delivered, current hospitalization Is this a current diagnosis for this admission?: Yes (4) Vaginal delivery Is this a current diagnosis for this admission?: Yes Discharge Data - Discharge Medication Home Medications: Levothyroxine Sodium [Synthroid 0.112 mg Tablet] 1 tab PO DAILY 04/11/18 Sertraline HCl [Zoloft 50 mg Tablet] 100 mg PO DAILY 04/11/18 Pnv No.121/Iron/Folic Acid [ Multivitamin Tablet] 1 tab PO DAILY 05/09/18 Gestational Age: 38.4 wks Reason(s) for Admission: Onset of Labor Procedures: Ultrasound Intrapartum Procedure(s): Vacuum Extraction Complication(s): Laceration-Vaginal Laceration-Degree: 2nd - [place] Data Baby 1 Female at 1 minute: 3 at 5 minutes: 6 at 10 minutes: 7 Weight: 3.203 kg Home with Mother: Yes Complications: Yes - Positive drug screen-marijuana - Diagnosis Test Laboratory: Temp Pulse Resp BP Pulse Ox 97.6 F 76 16 98/60 L 100 05/19/18 07:50 05/19/18 07:50 05/19/18 07:50 05/19/18 07:50 05/19/18 07:50 05/17/18 05/17/18 05/18/18 04:18 04:44 07:03 RBC 4.11 3.25 L Hgb 14.0 11.0 L D Hct 40.3 32.3 L Urine Opiates Screen UNCONFIRMED POSITIVE - Discharge information/Instructions Discharge Activity: Activity As Tolerated, Balance Activity w/Rest, Pelvic Rest, Slowly Increase Activity, No tub bath Discharge Diet: Regular Disposition: HOME, SELF-CARE Follow [facility]: [facility] in: 4, Weeks
[2018-05-19] MEDS: FAMOTIDINE 20 MG TABLET PO SCH (16:53)
[2018-05-19 20:02] VITALS: BP 94/54
== END 2018-05-19 20:54 | disposition home or self-care (01) | DRG 807 ==
LOC: LC 04:08 → LR 04:36 → 2S 18:53
PROVIDERS: ADMIT Obstetrics & Gynecology; ATTEND Obstetrics & Gynecology
PROC: 10D07Z6 Extraction of Products of Conception, Vacuum, Via Natural or Artificial Opening (ICD-10-PCS; principal; 2018-05-17)
PROC: 0KQM0ZZ Repair Perineum Muscle, Open Approach (ICD-10-PCS; 2018-05-17)
PROC: 10907ZC Drainage of Amniotic Fluid, Therapeutic from Products of Conception, Via Natural or Artificial Opening (ICD-10-PCS; 2018-05-17)
PROC: 4A1HXCZ Monitoring of Products of Conception, Cardiac Rate, External Approach (ICD-10-PCS; 2018-05-17)
DX: O70.1 Second degree perineal laceration during delivery (principal); Z37.0 Single live birth; O40.3XX0 Polyhydramnios, third trimester, not applicable or unspecified; O99.344 Other mental disorders complicating childbirth; F32.9 Major depressive disorder, single episode, unspecified; F17.210 Nicotine dependence, cigarettes, uncomplicated; O99.334 Smoking (tobacco) complicating childbirth; O69.81X0 Labor and delivery complicated by cord around neck, without compression, not applicable or unspecified; Z34.83 Encounter for supervision of other normal pregnancy, third trimester; Z3A.38 38 weeks gestation of pregnancy
CPT/HCPCS: 36415; 80307; 81005; 84112; 85025; 85027; 86592; 86850; 86900; 86901; 94760; J0131; J0290; J0295; J2590; J3010; J3490; S0119